=== PATIENT | female | born 1960 ===

== ENCOUNTER 2017-12-05 20:29 | Emergency (ER) | payer OTHER ==
[2017-12-05 21:19] LABS: APPEARANCE,URINE Cloudy; BILIRUBIN,URINE NEGATIVE (NEGATIVE); COLOR,URINE Yellow; GLUCOSE, URINE (UA) NEGATIVE (NEGATIVE); KETONES,URINE NEGATIVE (NEGATIVE); LEUKOCYTE ESTERASE ,URINE 3+ (NEGATIVE); NITRATE,URINE NEGATIVE (NEGATIVE); OCCULT BLOOD,URINE 3+ (NEG-TRACE); UROBILINOGEN,URINE 0.2 (0.2-1.0 EU)
[2017-12-05 21:29] LABS: BACTERIA 1+ (< 1+); CRYSTALS NEGATIVE (0-3 AVE/HPF); EPITHELIAL CELLS 0-1 (SQUAMOUS); RBC,URINE 40-60 (0-3AV/HPF); WBC,URINE TNTC (0-5AV/HPF)
[2017-12-05 21:31] VITALS: BP 121/80; PULSE 76; RESP 18; TEMP 98.3; O2SAT 100
[2017-12-05] MEDS ORDERED: CEFTRIAXONE 1 GM PDS IM ONE (22:46)
[2017-12-05] MEDS ORDERED: LIDOCAINE HCL 1% MPF 30 SOL INFIL ONE (22:51)
[2017-12-05] MEDS ORDERED: CEFTRIAXONE 1 GM PDS ONE (22:57)
[2017-12-05] MEDS ORDERED: LIDOCAINE HCL 1% MPF 30 SOL ONE (22:57)
== END 2017-12-05 23:30 | disposition home or self-care (01) ==
LOC: ED 20:29
DX: N39.0 Urinary tract infection, site not specified (principal); R31.9 Hematuria, unspecified
CPT/HCPCS: 81001; 87077; 87088; 87186; 96372; 99282; 99283; J0696; J2001